=== PATIENT | female | born 1985 | race Two or more races ===

== ENCOUNTER 2021-02-16 10:06 | Outpatient (CLI) | payer OTHER ==
[~2021-02-16 10:06] MED LIST: ACCUNEB0.63 MG/3 IH; TUSNEL LIQUID178 ML PO; ZITHROMAX500 MG PO
== END 2021-02-16 10:12 | disposition home or self-care (01) ==
LOC: SONOGRAMA 10:06
PROVIDERS: ATTEND Pathology Anatomic Pathology & Clinical Pathology
DX: E04.2 Nontoxic multinodular goiter (principal)